=== PATIENT | female | born 1940 | race Two or more races ===

== ENCOUNTER → 2018-01-08 | Outpatient (CLI) | payer OTHER | END | disposition home or self-care (01) | LOC: Rad HDHVI 09:03 | PROVIDERS: ATTEND Internal Medicine Cardiovascular Disease | DX: I10 Essential (primary) hypertension (principal); I35.0 Nonrheumatic aortic (valve) stenosis; E03.9 Hypothyroidism, unspecified; E11.9 Type 2 diabetes mellitus without complications | CPT/HCPCS: 93880 ==

== ENCOUNTER → 2018-01-15 | Outpatient (CLI) | payer OTHER ==
[2018-01-15 16:13] LABS: Urine Blood Negative /uL (Negative); Urine Specific Gravity 1.009 (1.001-1.035)
[2018-01-15 16:29] LABS: Albumin 4.1 g/dL (3.4-5.0); BUN/Creatinine Ratio 21.3; Bilirubin, Total 0.5 mg/dL (0.2-1.0); Calcium 9.5 mg/dL (8.5-10.1); Potassium 3.1 mmol/L (3.5-5.1); Total Protein 8.2 g/dL (6.4-8.2)
[2018-01-15 16:34] LABS: Free T4 (Free Thyroxine) 0.99 ng/dL (0.89-1.76)
[2018-01-15 17:08] LABS: Basophils # (auto) 0 uL; Basophils % (auto) 0.7 % (0.0-2.0); Eosinophils # (auto) 0.1 uL; Eosinophils % (auto) 1.3 % (0.0-7.0); Hematocrit 43.7 % (36.0-46.0); Hemoglobin 14.5 g/dL (12.2-16.2); Lymphocytes # (auto) 1.6 uL; Lymphocytes % (auto) 30.2 % (10.0-50.0); Mean Corpuscular Hemoglobin 29.3 pg (28.0-32.0); Mean Corpuscular Hgb Conc. 33.1 g/dL (32.0-36.0); Mean Corpuscular Volume 88.6 fL (80.0-100.0); Monocytes # (auto) 0.4 uL; Monocytes % (auto) 7.5 % (0.0-12.0); Neutrophils # (auto) 3.2 uL; Neutrophils % (auto) 60.3 % (37.0-80.0); Nucleated Red Blood Cells % 0.6 %; Platelet Count (auto) 154 10^3/uL (140-450); Red Blood Cells 4.93 10^6/uL (4.0-5.20); Red Cell Distribution Width 12.9 % (11.8-14.3); White Blood Cell 5.3 10^3/uL (4.4-10.8)
== END | disposition home or self-care (01) ==
LOC: Rad HDHVI 10:56
PROVIDERS: ATTEND Internal Medicine Cardiovascular Disease
DX: Z00.01 Encounter for general adult medical examination with abnormal findings (principal); I08.8 Other rheumatic multiple valve diseases; I10 Essential (primary) hypertension; E78.00 Pure hypercholesterolemia, unspecified; E11.9 Type 2 diabetes mellitus without complications; E03.9 Hypothyroidism, unspecified; E55.9 Vitamin D deficiency, unspecified; D51.9 Vitamin B12 deficiency anemia, unspecified; N39.0 Urinary tract infection, site not specified
CPT/HCPCS: 36415; 80053; 80061; 81003; 82306; 82607; 83036; 84439; 84443; 85025; 93306

== ENCOUNTER 2018-04-26 14:24 | Inpatient (IN) | payer OTHER ==
[~2018-04-26] VITALS: Ht 165.1 cm; Wt 73.1 kg
[2018-04-26] MEDS ORDERED: cloNIDine HCL 0.1 MG TAB PO ONE (14:45)
[2018-04-26 15:43] LABS: Basophils # (auto) 0 uL; Basophils % (auto) 0.5 % (0.0-2.0); Eosinophils # (auto) 0 uL; Eosinophils % (auto) 0.5 % (0.0-7.0); Hematocrit 43.6 % (36.0-46.0); Lymphocytes # (auto) 1.2 uL; Lymphocytes % (auto) 23.1 % (10.0-50.0); Mean Corpuscular Hemoglobin 30.1 pg (28.0-32.0); Mean Corpuscular Hgb Conc. 34.5 g/dL (32.0-36.0); Mean Corpuscular Volume 87.3 fL (80.0-100.0); Monocytes # (auto) 0.4 uL; Monocytes % (auto) 6.9 % (0.0-12.0); Neutrophils # (auto) 3.7 uL; Nucleated Red Blood Cells % 0.1 %; Platelet Count (auto) 149 10^3/uL (140-450); Red Blood Cells 4.99 10^6/uL (4.0-5.20); Red Cell Distribution Width 13.8 % (11.8-14.3); White Blood Cell 5.4 10^3/uL (4.4-10.8)
[2018-04-26 16:04] LABS: Albumin 4.2 g/dL (3.4-5.0); BUN/Creatinine Ratio 24.1; Bilirubin, Total 0.5 mg/dL (0.2-1.0); Calcium 9.2 mg/dL (8.5-10.1); Potassium 3.8 mmol/L (3.5-5.1); Total Protein 8.3 g/dL (6.4-8.2)
[2018-04-26] MEDS ORDERED: DOXA2TAB PO (16:04)
[2018-04-26] MEDS ORDERED: OLME40TA19 PO (16:04)
[2018-04-26] MEDS ORDERED: MORPHINE SULF INJ 2 MG/ML SYRINGE 1ML IV PRN (19:15)
[2018-04-26 21:10] VITALS: BP 165/75
[2018-04-26] MEDS: DOXAZOSIN MESYL 2 MG TAB PO SCH (21:24)
[2018-04-26] MEDS ORDERED: DOXAZOSIN MESYL 2 MG TAB PO ONE ×2 (22:00→23:15)
[2018-04-26 22:17] VITALS: BP 165/75
[2018-04-27] MEDS: NITROGLYCERIN 0.4 MG SL TAB SL PRN ×2 (01:02→03:37)
[2018-04-27 05:00] VITALS: BP 152/75
[2018-04-27 08:27] VITALS: BP 188/76
[2018-04-27] MEDS: DOXAZOSIN MESYL 2 MG TAB PO SCH ×2 (09:51→22:00)
[2018-04-27] MEDS ORDERED: LOSARTAN POTASSIUM 50 MG TAB PO SCH (10:00)
[2018-04-27 12:30] VITALS: BP 207/89
[2018-04-27] MEDS: ISOSORBIDE MONONITRATE 60 MG TAB PO SCH (12:59)
[2018-04-27 16:15] VITALS: BP 130/79
[2018-04-27 22:00] VITALS: BP 155/64
[2018-04-28 05:00] VITALS: BP 166/73
[2018-04-28 08:40] VITALS: BP 152/87
[2018-04-28] MEDS: ISOSORBIDE MONONITRATE 60 MG TAB PO SCH (10:00)
[2018-04-28] MEDS: TRIAMTERENE/HCTZ 75/50MG TABLET PO SCH (10:16)
[2018-04-28] MEDS: DOXAZOSIN MESYL 2 MG TAB PO SCH (10:17)
[2018-04-28 13:00] VITALS: BP 137/75
[2018-04-28 17:00] VITALS: BP 161/89
[2018-04-28 22:00] VITALS: BP 125/83
[2018-04-29 05:00] VITALS: BP 162/91
[2018-04-29 08:30] VITALS: BP 161/94
[2018-04-29] MEDS: DOXAZOSIN MESYL 2 MG TAB PO SCH ×3 (10:15→21:39)
[2018-04-29] MEDS: TRIAMTERENE/HCTZ 75/50MG TABLET PO SCH (10:16)
[2018-04-29] MEDS: ISOSORBIDE MONONITRATE 60 MG TAB PO SCH (10:16)
[2018-04-29 12:30] VITALS: BP 95/62
[2018-04-29 17:18] VITALS: BP 98/59
[2018-04-29 21:40] VITALS: BP 123/78
[2018-04-30 04:56] VITALS: BP 150/77
[2018-04-30] MEDS: DOXAZOSIN MESYL 2 MG TAB PO SCH (08:41)
[2018-04-30] MEDS: TRIAMTERENE/HCTZ 75/50MG TABLET PO SCH (08:41)
[2018-04-30 09:00] VITALS: BP 156/70
[2018-04-30] MEDS: ISOSORBIDE MONONITRATE 60 MG TAB PO SCH (11:47)
[2018-04-30 13:00] VITALS: BP 174/75
[2018-04-30 13:49] VITALS: BP 135/67
[2018-04-30 15:36] VITALS: BP 135/67
== END 2018-04-30 17:08 | disposition home or self-care (01) | DRG 305 ==
LOC: ER 14:24 → TELE 14:25 → TELE-EAST 21:05
PROVIDERS: ADMIT Internal Medicine Cardiovascular Disease; ATTEND Internal Medicine Cardiovascular Disease
DX: I10 Essential (primary) hypertension (principal); R00.1 Bradycardia, unspecified; I25.10 Atherosclerotic heart disease of native coronary artery without angina pectoris; E78.5 Hyperlipidemia, unspecified; I27.21 Secondary pulmonary arterial hypertension; Z95.5 Presence of coronary angioplasty implant and graft; Z88.5 Allergy status to narcotic agent; Z88.2 Allergy status to sulfonamides
CPT/HCPCS: 36415; 70450; 71045; 80053; 84443; 84484; 85025; 93005

== ENCOUNTER → 2018-05-27 | Outpatient (CLI) | payer BC ==
[~2018-05-27] MED LIST: DOXA2TAB PO; IOHEXOL 350 MG/ML 100ML IJ ONE; OLME40TA19 PO; SODIUM CHLORIDE 0.9% 250 ML IV ONE
[2018-05-27 12:55] VITALS: BP 215/104
[2018-05-27 14:45] VITALS: BP 218/96
== END | disposition home or self-care (01) ==
LOC: Rad HDHVI 12:45
PROVIDERS: ATTEND Internal Medicine Cardiovascular Disease
DX: K57.30 Diverticulosis of large intestine without perforation or abscess without bleeding (principal); I10 Essential (primary) hypertension
CPT/HCPCS: 74175; 82565; G0463; Q9967

== ENCOUNTER → 2018-10-28 | Outpatient (CLI) | payer MEDICARE, OTHER ==
[~2018-10-28] MED LIST changes: -IOHEXOL 350 MG/ML 100ML IJ ONE; -SODIUM CHLORIDE 0.9% 250 ML IV ONE
[2018-10-28 12:26] LABS: Urine WBC None Seen /hpf (0 - 5)
[2018-10-28 12:53] LABS: Basophils # (auto) 0 uL; Basophils % (auto) 0.7 % (0.0-2.0); Eosinophils # (auto) 0 uL; Eosinophils % (auto) 0.7 % (0.0-7.0); Hematocrit 42.1 % (36.0-46.0); Hemoglobin 14.3 g/dL (12.2-16.2); Lymphocytes # (auto) 1.5 uL; Lymphocytes % (auto) 28.3 % (10.0-50.0); Mean Corpuscular Hemoglobin 29.8 pg (28.0-32.0); Mean Corpuscular Volume 87.8 fL (80.0-100.0); Monocytes # (auto) 0.4 uL; Monocytes % (auto) 8.3 % (0.0-12.0); Neutrophils # (auto) 3.3 uL; Nucleated Red Blood Cells % 0.2 %; Platelet Count (auto) 164 10^3/uL (140-450); Red Cell Distribution Width 13.2 % (11.8-14.3); White Blood Cell 5.3 10^3/uL (4.4-10.8)
[2018-10-28 13:07] LABS: Urine Bacteria NONE SEEN /hpf (None Seen); Urine Blood Negative /uL (Negative); Urine Specific Gravity 1.006 (1.001-1.035)
[2018-10-28 13:16] LABS: Potassium 3.1 mmol/L (3.5-5.1)
[2018-10-28 13:28] LABS: Albumin 4.1 g/dL (3.4-5.0); Bilirubin, Total 0.5 mg/dL (0.2-1.0); Calcium 9.8 mg/dL (8.5-10.1); Total Protein 8.3 g/dL (6.4-8.2)
== END | disposition home or self-care (01) ==
LOC: LAB 11:14
PROVIDERS: ATTEND Family Medicine
DX: E78.5 Hyperlipidemia, unspecified (principal); I70.1 Atherosclerosis of renal artery; E11.9 Type 2 diabetes mellitus without complications; I10 Essential (primary) hypertension; Z79.899 Other long term (current) drug therapy
CPT/HCPCS: 36415; 80053; 80061; 81001; 82306; 82607; 83036; 84443; 85025

== ENCOUNTER → 2018-11-28 | Outpatient (CLI) | payer MEDICARE, OTHER ==
[2018-11-28 19:18] LABS: BUN/Creatinine Ratio 23.6; Calcium 8.9 mg/dL (8.5-10.1)
[2018-11-28 20:09] LABS: Potassium 3.7 mmol/L (3.5-5.1)
== END | disposition home or self-care (01) ==
LOC: LAB 16:14
PROVIDERS: ATTEND Family Medicine
DX: E89.6 Postprocedural adrenocortical (-medullary) hypofunction (principal)
CPT/HCPCS: 36415; 80048

== ENCOUNTER → 2019-01-03 | Outpatient (CLI) | payer OTHER | END | disposition home or self-care (01) | LOC: Rad HDHVI 13:55 | PROVIDERS: ATTEND Internal Medicine Cardiovascular Disease | DX: I08.8 Other rheumatic multiple valve diseases (principal); I11.9 Hypertensive heart disease without heart failure; I27.20 Pulmonary hypertension, unspecified; R06.02 Shortness of breath; R07.89 Other chest pain | CPT/HCPCS: 93306 ==

== ENCOUNTER → 2019-06-06 | Outpatient (CLI) | payer OTHER, MEDICARE ==
[2019-06-06 10:07] LABS: Basophils # (auto) 0 uL; Basophils % (auto) 0.5 % (0.0-2.0); Eosinophils # (auto) 0.1 uL; Eosinophils % (auto) 1.7 % (0.0-7.0); Hematocrit 41.4 % (36.0-46.0); Hemoglobin 13.9 g/dL (12.2-16.2); Lymphocytes # (auto) 1.4 uL; Lymphocytes % (auto) 28.8 % (10.0-50.0); Mean Corpuscular Hemoglobin 29.7 pg (28.0-32.0); Mean Corpuscular Hgb Conc. 33.6 g/dL (32.0-36.0); Mean Corpuscular Volume 88.4 fL (80.0-100.0); Monocytes # (auto) 0.4 uL; Monocytes % (auto) 8.7 % (0.0-12.0); Neutrophils # (auto) 2.9 uL; Neutrophils % (auto) 60.3 % (37.0-80.0); Platelet Count (auto) 143 10^3/uL (140-450); Red Blood Cells 4.69 10^6/uL (4.0-5.20); Red Cell Distribution Width 13.5 % (11.8-14.3); White Blood Cell 4.9 10^3/uL (4.4-10.8)
[2019-06-06 10:13] LABS: Urine Bacteria NONE SEEN /hpf (None Seen); Urine Blood Negative /uL (Negative); Urine WBC 1 /hpf (0 - 5)
[2019-06-06 11:02] LABS: Albumin 3.9 g/dL (3.4-5.0); Potassium 3.1 mmol/L (3.5-5.1)
[2019-06-06 11:08] LABS: BUN/Creatinine Ratio 24.4; Bilirubin, Total 0.5 mg/dL (0.2-1.0); Total Protein 7.7 g/dL (6.4-8.2)
== END | disposition home or self-care (01) ==
LOC: LAB 09:33
PROVIDERS: ATTEND Family Medicine
DX: E11.9 Type 2 diabetes mellitus without complications (principal); I10 Essential (primary) hypertension; E87.6 Hypokalemia; I34.0 Nonrheumatic mitral (valve) insufficiency; I25.10 Atherosclerotic heart disease of native coronary artery without angina pectoris; Z68.27 Body mass index [BMI] 27.0-27.9, adult
CPT/HCPCS: 36415; 80053; 80061; 81001; 83036; 84443; 85025

== ENCOUNTER → 2019-08-21 | Outpatient (CLI) | payer MEDICARE, OTHER ==
[~2019-08-21] MED LIST changes: -OLME40TA19 PO; +OLME40TA26 PO
[2019-08-21 13:34] LABS: Albumin 3.8 g/dL (3.4-5.0); Calcium 9.5 mg/dL (8.5-10.1); Potassium 3.3 mmol/L (3.5-5.1)
[2019-08-21 13:40] LABS: Bilirubin, Total 0.6 mg/dL (0.2-1.0); Total Protein 7.8 g/dL (6.4-8.2)
== END | disposition home or self-care (01) ==
LOC: LAB 12:45
PROVIDERS: ATTEND Family Medicine
DX: E78.00 Pure hypercholesterolemia, unspecified (principal); E87.6 Hypokalemia; R73.03 Prediabetes
CPT/HCPCS: 36415; 80053; 80061

== ENCOUNTER → 2019-09-11 | Outpatient (CLI) | payer OTHER | END | disposition home or self-care (01) | LOC: Rad HDHVI 08:50 | PROVIDERS: ATTEND Internal Medicine Cardiovascular Disease | DX: I08.8 Other rheumatic multiple valve diseases (principal); I10 Essential (primary) hypertension; Z95.5 Presence of coronary angioplasty implant and graft | CPT/HCPCS: 93306 ==

== ENCOUNTER 2019-10-01 12:11 | Inpatient (IN) | payer OTHER ==
[~2019-10-01] VITALS: Ht 157.5 cm; Wt 70.3 kg
[~2019-10-01 12:11] MED LIST changes: -AML5T PO; -ATOR10TA PO; -METH4PAK PO; -OLME40TA9 PO; -PANT40TA2 PO; -PRED20TA2 PO
[2019-10-01 15:18] LABS: Basophils # (auto) 0 uL; Basophils % (auto) 0.7 % (0.0-2.0); Eosinophils # (auto) 0 uL; Eosinophils % (auto) 0.6 % (0.0-7.0); Hematocrit 41.6 % (36.0-46.0); Hemoglobin 13.9 g/dL (12.2-16.2); Lymphocytes # (auto) 1.5 uL; Mean Corpuscular Hemoglobin 29.8 pg (28.0-32.0); Mean Corpuscular Hgb Conc. 33.5 g/dL (32.0-36.0); Mean Corpuscular Volume 88.9 fL (80.0-100.0); Monocytes # (auto) 0.4 uL; Monocytes % (auto) 7.5 % (0.0-12.0); Neutrophils # (auto) 3.5 uL; Neutrophils % (auto) 63.2 % (37.0-80.0); Nucleated Red Blood Cells % 0.1 %; Platelet Count (auto) 151 10^3/uL (140-450); Red Blood Cells 4.68 10^6/uL (4.0-5.20); Red Cell Distribution Width 13.6 % (11.8-14.3); White Blood Cell 5.5 10^3/uL (4.4-10.8)
[2019-10-01 15:36] LABS: Albumin 4.2 g/dL (3.4-5.0); Anion Gap 6 (5-15); Blood Urea Nitrogen 22 mg/dL (7-18); Calcium 9.4 mg/dL (8.5-10.1); Carbon Dioxide 28 mmol/L (21-32); Chloride 103 mmol/L (98-107); Glucose 133 mg/dL (74-106); Potassium 3.6 mmol/L (3.5-5.1); Sodium 137 mmol/L (136-145)
[2019-10-01 15:41] LABS: Alanine Aminotransferase 66 U/L (13-56); Alkaline Phosphatase 92 U/L (45-117); Aspartate Aminotransferase 28 U/L (15-37); BUN/Creatinine Ratio 25.3; Bilirubin, Total 0.4 mg/dL (0.2-1.0); GFR African American 81 mL/min; GFR Non-African American 67 mL/min
[2019-10-01 18:59] LABS: Urine Bacteria NONE SEEN /hpf (None Seen); Urine Blood Negative /uL (Negative); Urine Specific Gravity 1.012 (1.001-1.035); Urine WBC 11 /hpf (0 - 5)
[2019-10-01] MEDS ORDERED: LABETALOL HCL 5 MG/ML 4ML SYRINGE IV PRN (20:00)
[2019-10-01] MEDS ORDERED: MORPHINE SULF INJ 2 MG/ML SYRINGE 1ML IV PRN ×2 (20:00→21:00)
[2019-10-01] MEDS ORDERED: LORazepam 0.5 MG TAB PO PRN (20:00)
[2019-10-01] MEDS ORDERED: NITROGLYCERIN 0.4 MG SL TAB SL PRN (20:00)
[2019-10-01] MEDS ORDERED: FAMOTIDINE (10MG/ML) 2ML VL IV SCH (22:00)
[2019-10-01] MEDS: LISINOPRIL 20 MG TAB PO SCH (22:05)
[2019-10-01 23:20] VITALS: BP 135/76
--- NOTE | 2019-10-01 23:45 | NUR ---
RECEIVED PT FROM ER NURSE POC REVIEWED, PT TRANSFERRED INTO BED 248A, RESP EVEN AND UNLABORED, DENIES PAIN, C/O RIGHT EYE TWITCHING DROOPING AND BLINKING, B/P 157/98 HR 64 LABETALOL IV GIVEN ORDERED
[2019-10-02 02:00] VITALS: BP 157/98
[2019-10-02 05:00] VITALS: BP 152/77
[2019-10-02 06:30] LABS: Basophils # (auto) 0 uL; Basophils % (auto) 0.4 % (0.0-2.0); Eosinophils # (auto) 0 uL; Eosinophils % (auto) 0.9 % (0.0-7.0); Hemoglobin 13.1 g/dL (12.2-16.2); Lymphocytes # (auto) 1.6 uL; Lymphocytes % (auto) 30.4 % (10.0-50.0); Mean Corpuscular Hemoglobin 30.4 pg (28.0-32.0); Mean Corpuscular Hgb Conc. 34.4 g/dL (32.0-36.0); Mean Corpuscular Volume 88.3 fL (80.0-100.0); Monocytes # (auto) 0.5 uL; Monocytes % (auto) 9.6 % (0.0-12.0); Neutrophils # (auto) 3.1 uL; Neutrophils % (auto) 58.7 % (37.0-80.0); Platelet Count (auto) 145 10^3/uL (140-450); Red Blood Cells 4.31 10^6/uL (4.0-5.20); Red Cell Distribution Width 13.4 % (11.8-14.3); White Blood Cell 5.3 10^3/uL (4.4-10.8)
--- NOTE | 2019-10-02 07:00 | NUR ---
report given to am nurse poc reviewed
--- NOTE | 2019-10-02 07:25 | NUR ---
Opening Note Received report from shift superintendent caustic cresylate RN. Patient is awake, alert and oriented x4. No signs or symptoms of distress noted at this time. Patient is on room air, respirations even and unlabored, denies pain at this time. Reviewed plan of care with patient, patient verbalized understanding. Bed in low and locked position, call light within reach. Will continue to monitor Q1 hour and PRN.
[2019-10-02 07:45] LABS: BUN/Creatinine Ratio 20.2; Calcium 9.3 mg/dL (8.5-10.1); Potassium 3.1 mmol/L (3.5-5.1)
[2019-10-02 09:26] VITALS: BP 163/79
[2019-10-02] MEDS: LISINOPRIL 20 MG TAB PO SCH ×2 (09:58→22:11)
--- NOTE | 2019-10-02 12:20 | NUR ---
Patient taken down to MRI
--- NOTE | 2019-10-02 12:49 | NUR ---
Patient back to room Patient back from MRI. No signs or symptoms of distress noted at this time. Will continue to monitor Q1 hour and PRN.
[2019-10-02 13:21] VITALS: BP 161/90
--- NOTE | 2019-10-02 14:40 | NUR ---
Dr. Peterson at bedside Discussing plan of care with patient and this RN. No new orders received. Family at bedside. Will continue to monitor Q1 hour and PRN.
[2019-10-02] MEDS ORDERED: POTASSIUM CHL 20 Meq TABLET PO ONE (15:00)
[2019-10-02] MEDS ORDERED: amLODIPine BESYLATE 5 MG TAB PO ONE (15:00)
[2019-10-02] MEDS ORDERED: LORazepam 0.5 MG TAB PO PRN (15:00)
[2019-10-02] MEDS ORDERED: hydrALAZINE HCL 20 MG/ML VL IV PRN (15:00)
[2019-10-02] MEDS ORDERED: TEMAZEPAM 15 MG CAP PO PRN (15:00)
[2019-10-02 16:55] VITALS: BP 163/84
[2019-10-02] MEDS ORDERED: DOXAZOSIN MESYL 2 MG TAB PO SCH (18:00)
--- NOTE | 2019-10-02 19:15 | NUR ---
Closing Note Report given to coffee shop attendant RN. No signs or symptoms of distress noted at this time.
--- NOTE | 2019-10-02 19:20 | NUR ---
OPENING NOTE- NOC SHIFT PATIENT IS ALERT AND ORIENTED X4, ANSWERS IN COMPLETE SENTENCES AND MAKES APPROPRIATE EYE CONTACT. PATIENT IS IN BED, DAUGHTER IS AT BEDSIDE. DISCUSSED POC WITH PATIENT AND DAUGHTER AND INSTRUCTED PATIENT TO CALL PRN; PATIENT VERBALIZED UNDERSTANDING. WILL CONTINUE TO MONITOR Q1H AND PRN. GOOD FAMILY DYNAMICS NOTED.
[2019-10-02] MEDS ORDERED: FAMOTIDINE (10MG/ML) 2ML VL IV SCH (22:00)
[2019-10-02] MEDS: predniSONE 20 MG TAB PO SCH (22:10)
[2019-10-02 22:41] VITALS: BP 170/98
[2019-10-03 05:36] VITALS: BP 150/90
[2019-10-03 07:10] LABS: Magnesium 2.1 mg/dL (1.6-2.6); Potassium 4.2 mmol/L (3.5-5.1)
[2019-10-03 09:00] VITALS: BP 158/93
--- NOTE | 2019-10-03 09:41 | NUR ---
PT REPORTS THAT SHE WALKS FINE AND DOES NOT NEED P.T.
[2019-10-03] MEDS: predniSONE 20 MG TAB PO SCH (09:49)
[2019-10-03] MEDS: LISINOPRIL 20 MG TAB PO SCH (09:49)
[2019-10-03] MEDS ORDERED: amLODIPine BESYLATE 5 MG TAB PO SCH (10:00)
[2019-10-03] MEDS ORDERED: OLME40TA26 PO (11:28)
[2019-10-03] MEDS ORDERED: AML5T PO (11:28)
[2019-10-03] MEDS ORDERED: PANT40TA2 PO (11:28)
[2019-10-03] MEDS ORDERED: OLME40TA9 PO (11:28)
[2019-10-03] MEDS ORDERED: PRED20TA2 PO (11:28)
[2019-10-03] MEDS ORDERED: METH4PAK PO (11:28)
[2019-10-03] MEDS ORDERED: amLODIPine BESYLATE 5 MG TAB PO ONE (11:30)
[2019-10-03] MEDS ORDERED: ATOR10TA PO (11:31)
[2019-10-03] MEDS ORDERED: ISOSORBIDE MONONITRATE IR 20 MG TAB PO ONE (12:00)
[2019-10-03 13:00] VITALS: BP 184/87
[2019-10-03 14:15] VITALS: BP 144/78
--- NOTE | 2019-10-03 14:15 | NUR ---
Discharge instructions given as ordered. Encourage to follow up with PMD as instructed. All questions and concerns addressed. Patient verbalized understanding.IV removed with catheter intact, pressure dressing applied. Telemetry unit returned to ICU. Patient taken to vehicle via wheelchair with all personal belongings, accompanied by staff and family member. No distress noted at time of departure.
== END 2019-10-03 14:18 | disposition home or self-care (01) | DRG 305 ==
LOC: ER 12:11 → TELE 12:12 → TELE-EAST 23:15
PROVIDERS: ADMIT Nurse Practitioner Acute Care; ATTEND Internal Medicine
DX: I16.0 Hypertensive urgency (principal); I25.10 Atherosclerotic heart disease of native coronary artery without angina pectoris; E78.5 Hyperlipidemia, unspecified; I12.9 Hypertensive chronic kidney disease with stage 1 through stage 4 chronic kidney disease, or unspecified chronic kidney disease; G51.0 Bell's palsy; E11.22 Type 2 diabetes mellitus with diabetic chronic kidney disease; F17.200 Nicotine dependence, unspecified, uncomplicated; N18.3 Chronic kidney disease, stage 3 (moderate); Z95.5 Presence of coronary angioplasty implant and graft; Z90.710 Acquired absence of both cervix and uterus; Z82.49 Family history of ischemic heart disease and other diseases of the circulatory system; Z80.0 Family history of malignant neoplasm of digestive organs; Z80.1 Family history of malignant neoplasm of trachea, bronchus and lung; Z88.5 Allergy status to narcotic agent; Z88.2 Allergy status to sulfonamides; Z79.899 Other long term (current) drug therapy
CPT/HCPCS: 36415; 70450; 70551; 80048; 80053; 80061; 81001; 83735; 84132; 84443; 84484; 85025; 87086; G0378; J3490

== ENCOUNTER → 2019-10-01 | Outpatient (CLI) | payer OTHER ==
[~2019-10-01] MED LIST changes: +AML5T PO; +ATOR10TA PO; +METH4PAK PO; +OLME40TA9 PO; +PANT40TA2 PO; +PRED20TA2 PO
[2019-10-01 11:04] LABS: BUN/Creatinine Ratio 27.7; Calcium 9.2 mg/dL (8.5-10.1); Potassium 3.5 mmol/L (3.5-5.1)
== END | disposition home or self-care (01) ==
LOC: LAB 10:18
PROVIDERS: ATTEND Family Medicine
DX: E87.6 Hypokalemia (principal); I10 Essential (primary) hypertension
CPT/HCPCS: 36415; 80048

== ENCOUNTER 2020-05-23 11:11 | Emergency (ER) | payer MEDICARE, OTHER ==
[~2020-05-23] VITALS: Ht 162.6 cm; Wt 70.3 kg
[~2020-05-23 11:11] MED LIST changes: +AML5T PO; +ATOR10TA PO; +METH4PAK PO; +OLME40TA9 PO; +PANT40TA2 PO; +PRED20TA2 PO
[2020-05-23 12:09] LABS: Basophils # (auto) 0 10 ^3/uL (0-0.2); Basophils % (auto) 0.3 % (0.0-2.0); Eosinophils # (auto) 0 10 ^3/uL (0-0.8); Eosinophils % (auto) 0.2 % (0.0-7.0); Hematocrit 45.2 % (36.0-46.0); Lymphocytes % (auto) 13.6 % (10.0-50.0); Mean Corpuscular Hemoglobin 29.4 pg (28.0-32.0); Mean Corpuscular Hgb Conc. 33.1 g/dL (32.0-36.0); Mean Corpuscular Volume 88.8 fL (80.0-100.0); Monocytes # (auto) 0.5 10 ^3/uL (0-1.3); Monocytes % (auto) 6.6 % (0.0-12.0); Neutrophils # (auto) 5.8 10 ^3/uL (1.6-8.6); Neutrophils % (auto) 79.3 % (37.0-80.0); Nucleated Red Blood Cells % 0.1 %; Platelet Count (auto) 108 10^3/uL (140-450); Red Cell Distribution Width 14.5 % (11.8-14.3); White Blood Cell 7.3 10^3/uL (4.4-10.8)
[2020-05-23 12:25] LABS: Albumin 4.2 g/dL (3.4-5.0); Anion Gap 7 (5-15); Calcium 9.7 mg/dL (8.5-10.1); Carbon Dioxide 27 mmol/L (21-32); Chloride 104 mmol/L (98-107); Glucose 119 mg/dL (74-106); Potassium 3.2 mmol/L (3.5-5.1); Sodium 138 mmol/L (136-145)
[2020-05-23 12:41] LABS: Alanine Aminotransferase 25 U/L (13-56); Alkaline Phosphatase 100 U/L (45-117); Aspartate Aminotransferase 19 U/L (15-37); Bilirubin, Total 0.5 mg/dL (0.2-1.0); GFR African American 74 mL/min; GFR Non-African American 61 mL/min; Total Protein 8.3 g/dL (6.4-8.2)
[2020-05-23 13:06] LABS: BUN/Creatinine Ratio 19.4; Blood Urea Nitrogen 18 mg/dL (7-18)
[2020-05-23 15:43] LABS: Urine Bacteria FEW /hpf (None Seen); Urine Blood Negative /uL (Negative); Urine Specific Gravity 1.012 (1.001-1.035); Urine WBC <1 /hpf (0 - 5)
[2020-05-23] MEDS ORDERED: SODIUM CHLORIDE 0.9% 1,000 ML IV ONE (15:45)
[2020-05-23] MEDS ORDERED: LABETALOL HCL 5 MG/ML 4ML SYRINGE IV ONE (15:45)
[2020-05-23] MEDS ORDERED: POTASSIUM EFFERVESENT TAB 25 MEQ PO ONE (17:30)
[2020-05-23 18:30] VITALS: BP 165/77
== END 2020-05-23 17:41 | disposition home or self-care (01) ==
LOC: ER 11:11
DX: I10 Essential (primary) hypertension (principal); E87.6 Hypokalemia; I49.3 Ventricular premature depolarization
CPT/HCPCS: 36415; 71046; 80053; 81001; 83735; 84443; 84484; 85025; 93005; 96361; 96374; 99285; J3490; J7030

== ENCOUNTER → 2020-06-07 | Outpatient (CLI) | payer OTHER ==
[2020-06-07 12:18] LABS: Albumin 3.8 g/dL (3.4-5.0); Potassium 4.1 mmol/L (3.5-5.1)
[2020-06-07 12:24] LABS: BUN/Creatinine Ratio 19.3; Bilirubin, Total 0.6 mg/dL (0.2-1.0); Calcium 9.5 mg/dL (8.5-10.1); Total Protein 7.5 g/dL (6.4-8.2)
== END | disposition home or self-care (01) ==
LOC: LAB 09:37
PROVIDERS: ATTEND Internal Medicine Cardiovascular Disease
DX: I10 Essential (primary) hypertension (principal)
CPT/HCPCS: 36415; 80053

== ENCOUNTER → 2020-12-28 | Outpatient (CLI) | payer OTHER, MEDICARE | END | disposition home or self-care (01) | LOC: Rad HDHVI 14:52 | PROVIDERS: ATTEND Internal Medicine Cardiovascular Disease | DX: R06.02 Shortness of breath (principal); R00.2 Palpitations | CPT/HCPCS: 93306 ==

== ENCOUNTER → 2021-01-12 | Outpatient (CLI) | payer OTHER, MEDICARE ==
[~2021-01-12] VITALS: Ht 165.1 cm; Wt 68.9 kg
[~2021-01-12] MED LIST changes: +cloNIDine HCL 0.1 MG TAB ONE
== END | disposition home or self-care (01) ==
LOC: Rad HDHVI 13:27
PROVIDERS: ATTEND Internal Medicine Cardiovascular Disease
DX: I11.9 Hypertensive heart disease without heart failure (principal); I25.10 Atherosclerotic heart disease of native coronary artery without angina pectoris; E78.5 Hyperlipidemia, unspecified; R06.02 Shortness of breath
CPT/HCPCS: 78452; 93017; 96374; A9500

== ENCOUNTER → 2021-02-15 | Outpatient (CLI) | payer OTHER ==
[~2021-02-15] MED LIST changes: -cloNIDine HCL 0.1 MG TAB ONE
[2021-02-15 10:51] LABS: Basophils # (auto) 0 10 ^3/uL (0-0.2); Basophils % (auto) 0.7 % (0.0-2.0); Eosinophils # (auto) 0.1 10 ^3/uL (0-0.8); Eosinophils % (auto) 1.2 % (0.0-7.0); Hematocrit 41.2 % (36.0-46.0); Hemoglobin 14.2 g/dL (12.2-16.2); Lymphocytes # (auto) 1.3 10 ^3/uL (0.4-5.4); Lymphocytes % (auto) 26.2 % (10.0-50.0); Mean Corpuscular Hemoglobin 30.2 pg (28.0-32.0); Mean Corpuscular Hgb Conc. 34.6 g/dL (32.0-36.0); Mean Corpuscular Volume 87.2 fL (80.0-100.0); Monocytes # (auto) 0.4 10 ^3/uL (0-1.3); Monocytes % (auto) 8.6 % (0.0-12.0); Neutrophils % (auto) 63.3 % (37.0-80.0); Nucleated Red Blood Cells % 0.1 %; Platelet Count (auto) 143 10^3/uL (140-450); Red Blood Cells 4.72 10^6/uL (4.0-5.20); White Blood Cell 4.8 10^3/uL (4.4-10.8)
[2021-02-15 11:21] LABS: Albumin 3.7 g/dL (3.4-5.0); Calcium 8.8 mg/dL (8.5-10.1); Potassium 3.4 mmol/L (3.5-5.1)
[2021-02-15 11:25] LABS: BUN/Creatinine Ratio 16.4; Bilirubin, Total 0.5 mg/dL (0.2-1.0); Total Protein 7.5 g/dL (6.4-8.2)
== END | disposition home or self-care (01) ==
LOC: LAB 10:24
PROVIDERS: ATTEND Family Medicine
DX: I25.10 Atherosclerotic heart disease of native coronary artery without angina pectoris (principal); I12.9 Hypertensive chronic kidney disease with stage 1 through stage 4 chronic kidney disease, or unspecified chronic kidney disease; N18.30 Chronic kidney disease, stage 3 unspecified; E87.6 Hypokalemia; E78.5 Hyperlipidemia, unspecified
CPT/HCPCS: 36415; 80053; 80061; 82306; 82607; 84443; 85025; 85049

== ENCOUNTER → 2021-09-02 | Outpatient (CLI) | payer OTHER ==
[~2021-09-02] VITALS: Ht 162.6 cm; Wt 68.9 kg
[~2021-09-02] MED LIST changes: +ACETAMINOPHEN 500 MG TAB PO ONE; +[UNRECOGNIZED DRUG - OTHER] IV ONE
[2021-09-02 12:11] VITALS: BP 184/92
[2021-09-02 13:30] VITALS: BP 178/85
[2021-09-02 13:45] VITALS: BP 178/90
[2021-09-02 14:15] VITALS: BP 170/88
[2021-09-02 14:45] VITALS: BP 175/78
[2021-09-02 14:50] VITALS: BP 175/78
== END | disposition home or self-care (01) ==
LOC: ER 12:52
PROVIDERS: ATTEND Internal Medicine
DX: U07.1 COVID-19 (principal)
CPT/HCPCS: M0247; Q0247

== ENCOUNTER → 2021-11-08 | Outpatient (CLI) | payer OTHER ==
[~2021-11-08] MED LIST changes: -ACETAMINOPHEN 500 MG TAB PO ONE; -[UNRECOGNIZED DRUG - OTHER] IV ONE
[2021-11-08 09:09] LABS: Basophils # (auto) 0 10 ^3/uL (0-0.2); Basophils % (auto) 0.6 % (0.0-2.0); Eosinophils # (auto) 0.1 10 ^3/uL (0-0.8); Eosinophils % (auto) 1.3 % (0.0-7.0); Hematocrit 42.3 % (36.0-46.0); Hemoglobin 14.2 g/dL (12.2-16.2); Lymphocytes # (auto) 1.8 10 ^3/uL (0.4-5.4); Lymphocytes % (auto) 31.8 % (10.0-50.0); Mean Corpuscular Hemoglobin 30.1 pg (28.0-32.0); Mean Corpuscular Hgb Conc. 33.6 g/dL (32.0-36.0); Mean Corpuscular Volume 89.7 fL (80.0-100.0); Monocytes # (auto) 0.5 10 ^3/uL (0-1.3); Monocytes % (auto) 8.2 % (0.0-12.0); Neutrophils # (auto) 3.3 10 ^3/uL (1.6-8.6); Neutrophils % (auto) 58.1 % (37.0-80.0); Red Blood Cells 4.72 10^6/uL (4.0-5.20); Red Cell Distribution Width 13.8 % (11.8-14.3); White Blood Cell 5.6 10^3/uL (4.4-10.8)
[2021-11-08 09:47] LABS: Potassium 3.5 mmol/L (3.5-5.1)
[2021-11-08 09:59] LABS: Albumin 3.7 g/dL (3.4-5.0); BUN/Creatinine Ratio 18.9; Bilirubin, Total 0.6 mg/dL (0.2-1.0); Calcium 9.2 mg/dL (8.5-10.1); Total Protein 8.1 g/dL (6.4-8.2)
== END | disposition home or self-care (01) ==
LOC: LAB 08:33
PROVIDERS: ATTEND Student in an Organized Health Care Education/Training Program
DX: I42.0 Dilated cardiomyopathy (principal); I10 Essential (primary) hypertension; E78.2 Mixed hyperlipidemia; E55.9 Vitamin D deficiency, unspecified
CPT/HCPCS: 36415; 80053; 80061; 82306; 85025

== ENCOUNTER → 2021-11-14 | Outpatient (CLI) | payer OTHER ==
[2021-11-14 11:49] LABS: Basophils # (auto) 0.2 10 ^3/uL (0-0.2); Basophils % (auto) 2.8 % (0.0-2.0); Eosinophils # (auto) 0.1 10 ^3/uL (0-0.8); Eosinophils % (auto) 1.1 % (0.0-7.0); Lymphocytes # (auto) 1.5 10 ^3/uL (0.4-5.4); Lymphocytes % (auto) 25.5 % (10.0-50.0); Mean Corpuscular Hemoglobin 30.5 pg (28.0-32.0); Mean Corpuscular Hgb Conc. 34.1 g/dL (32.0-36.0); Mean Corpuscular Volume 89.4 fL (80.0-100.0); Monocytes # (auto) 0.6 10 ^3/uL (0-1.3); Monocytes % (auto) 9.3 % (0.0-12.0); Neutrophils # (auto) 3.7 10 ^3/uL (1.6-8.6); Neutrophils % (auto) 61.3 % (37.0-80.0); Nucleated Red Blood Cells % 0.1 %; Red Blood Cells 4.59 10^6/uL (4.0-5.20); Red Cell Distribution Width 13.9 % (11.8-14.3)
[2021-11-14 11:53] LABS: Urine Blood Negative /uL (Negative); Urine Specific Gravity 1.015 (1.001-1.035)
[2021-11-14 12:13] LABS: Albumin 3.5 g/dL (3.4-5.0); Calcium 9.2 mg/dL (8.5-10.1); Potassium 3.5 mmol/L (3.5-5.1)
[2021-11-14 12:18] LABS: BUN/Creatinine Ratio 23.1; Bilirubin, Total 0.6 mg/dL (0.2-1.0); Free T4 (Free Thyroxine) 1.16 ng/dL (0.89-1.76); Total Protein 7.7 g/dL (6.4-8.2)
== END | disposition home or self-care (01) ==
LOC: LAB 08:21
PROVIDERS: ATTEND Internal Medicine Cardiovascular Disease
DX: E11.9 Type 2 diabetes mellitus without complications (principal); D51.3 Other dietary vitamin B12 deficiency anemia; D64.9 Anemia, unspecified; E55.9 Vitamin D deficiency, unspecified; I10 Essential (primary) hypertension; R00.2 Palpitations; R53.1 Weakness; R30.0 Dysuria
CPT/HCPCS: 36415; 80053; 80061; 81003; 82306; 82607; 83036; 84439; 84443; 85025

== ENCOUNTER → 2022-08-25 | Outpatient (CLI) | payer OTHER ==
[~2022-08-25] VITALS: Ht 162.6 cm; Wt 69.4 kg
== END | disposition home or self-care (01) ==
LOC: Rad HDHVI 08:39
PROVIDERS: ATTEND Internal Medicine Cardiovascular Disease
DX: I25.10 Atherosclerotic heart disease of native coronary artery without angina pectoris (principal); R07.89 Other chest pain; I10 Essential (primary) hypertension; E78.5 Hyperlipidemia, unspecified
CPT/HCPCS: 78452; 93017; 96374; A9500

== ENCOUNTER → 2022-08-28 | Outpatient (CLI) | payer OTHER | END | disposition home or self-care (01) | LOC: Rad HDHVI 10:04 | PROVIDERS: ATTEND Internal Medicine Cardiovascular Disease | DX: I10 Essential (primary) hypertension (principal); E78.5 Hyperlipidemia, unspecified | CPT/HCPCS: 93306 ==

== ENCOUNTER 2024-06-04 15:54 | Inpatient (IN) | payer OTHER ==
[~2024-06-04] VITALS: Ht 162.6 cm; Wt 69.3 kg
[~2024-06-04 15:54] MED LIST changes: +ACET1CAP14 PO; +AZITTAB PO; -DOXA2TAB PO; +DOXA2TAB84 PO; -OLME40TA26 PO; +OLME40TA78 PO
[2024-06-04 17:23] LABS: Alanine Aminotransferase 20 U/L (7-40); Alkaline Phosphatase 97 U/L (46-116); Anion Gap 8 (5-15); BUN/Creatinine Ratio 18.1 (10.0-20.0); Blood Urea Nitrogen 17 mg/dL (9-23); Calcium 10.2 mg/dL (8.7-10.4); Carbon Dioxide 28 mmol/L (20-31); Chloride 105 mmol/L (98-107); Glucose 135 mg/dL (74-106); Potassium 3.6 mmol/L (3.5-5.1); Sodium 141 mmol/L (136-145)
[2024-06-04 17:24] LABS: Albumin 4.9 g/dL (3.2-4.8); Aspartate Aminotransferase 17 U/L (13-40); Bilirubin, Total 0.5 mg/dL (0.2-1.0); Total Protein 8.1 g/dL (5.7-8.2)
[2024-06-04 18:12] LABS: Hematocrit 47.1 % (36.0-46.0); Hemoglobin 15.7 g/dL (12.2-16.2); Mean Corpuscular Hemoglobin 30.5 pg (28.0-32.0); Mean Corpuscular Hgb Conc. 33.4 g/dL (32.0-36.0); Mean Corpuscular Volume 91.4 fL (80.0-100.0); Red Blood Cells 5.15 10^6/uL (4.0-5.20); Red Cell Distribution Width 13.8 % (11.8-14.3); White Blood Cell 6.7 10^3/uL (4.4-10.8)
[2024-06-04 18:20] LABS: Band Neutrophils % (manual) 0; Basophils % (manual) 0 (0.0-2.0); Blast Cells 0; Eosinophils % (manual) 0 (0-7); Metamyelocytes % 0; Myelocytes % 0; Promyelocytes % 0; Reactive Lymphocytes 0
[2024-06-04 19:36] LABS: Lymphocytes % (manual) 26 (10.0-50.0); Monocytes % (manual) 6 (0-12); Platelet Count (auto) 225 10^3/uL (140-450); Platelet Estimate Adequate; RBC Morphology Normal
[2024-06-04 19:50] VITALS: PULSE 86; RESP 16; O2SAT 97
[2024-06-04] MEDS: NITROGLYCERIN 0.4 MG SL TAB SL ONE (19:54)
[2024-06-04] MEDS ORDERED: NIFE1TAB31 PO (20:28)
[2024-06-04] MEDS ORDERED: ONDANSETRON HCL 4 MG/2 ML VIAL IV PRN (20:30)
[2024-06-04] MEDS ORDERED: NITROGLYCERIN 0.4 MG SL TAB SL PRN (20:30)
[2024-06-04] MEDS ORDERED: HYDROcodone-ACET 5/325MG TAB PO PRN (20:30)
[2024-06-04] MEDS ORDERED: DOCUSATE SOD 100 MG CAP PO PRN (20:30)
[2024-06-04] MEDS ORDERED: MORPHINE SULFATE INJ 2 MG/ml SYRG IV PRN (20:30)
[2024-06-04] MEDS ORDERED: ACETAMINOPHEN 325 MG TAB PO PRN (20:30)
[2024-06-04 21:16] LABS: Urine Bacteria None Seen /hpf (None Seen)
[2024-06-04 21:26] LABS: Urine Blood Negative /uL (Negative); Urine Clarity Clear (Clear); Urine Color Light-Yellow (Yellow); Urine Hyaline Cast FEW /lpf (0 - 2); Urine Mucus FEW (None Seen); Urine Protein, UAD 1+ (Negative); Urine Specific Gravity 1.015 (1.001-1.035); Urine Urobilinogen Normal (Negative); Urine WBC 3 /hpf (0 - 5); Urine pH 6.5 (5.0-9.0)
[2024-06-04] MEDS: cloNIDine HCL 0.1 MG TAB PO ONE (21:55)
[2024-06-04] MEDS: SODIUM CHLOR 0.9% PF (SALINE LOCK) 10ML VIAL/SYR IV SCH (21:55)
[2024-06-04] MEDS: NIFEdipine ER 30 MG TAB PO SCH (21:57)
[2024-06-05] VITALS (9 sets, daily range): BP systolic 122–174; BP diastolic 57–78; PULSE 54–67; RESP 16–19; TEMP 97.6–98.7; O2SAT 95–96
[2024-06-05] MEDS: hydrALAZINE HCL 20 MG/ML VL IV PRN (01:12)
[2024-06-05] MEDS: cloNIDine HCL 0.1 MG TAB PO ONE (04:35)
[2024-06-05 07:15] LABS: Basophils # (auto) 0 10 ^3/uL (0-0.2); Basophils % (auto) 0.5 % (0.0-2.0); Eosinophils # (auto) 0.1 10 ^3/uL (0-0.8); Eosinophils % (auto) 1.1 % (0.0-7.0); Hematocrit 40.2 % (36.0-46.0); Hemoglobin 13.7 g/dL (12.2-16.2); Lymphocytes # (auto) 1.4 10 ^3/uL (0.4-5.4); Lymphocytes % (auto) 27.1 % (10.0-50.0); Mean Corpuscular Hemoglobin 30.8 pg (28.0-32.0); Mean Corpuscular Hgb Conc. 34.1 g/dL (32.0-36.0); Mean Corpuscular Volume 90.2 fL (80.0-100.0); Monocytes # (auto) 0.5 10 ^3/uL (0-1.3); Monocytes % (auto) 9.7 % (0.0-12.0); Neutrophils # (auto) 3.3 10 ^3/uL (1.6-8.6); Neutrophils % (auto) 61.6 % (37.0-80.0); Nucleated Red Blood Cells % 0.1 %; Platelet Count (auto) 141 10^3/uL (140-450); Red Blood Cells 4.46 10^6/uL (4.0-5.20); Red Cell Distribution Width 13.7 % (11.8-14.3); White Blood Cell 5.3 10^3/uL (4.4-10.8)
[2024-06-05 07:37] LABS: Alanine Aminotransferase 14 U/L (7-40); Albumin 3.9 g/dL (3.2-4.8); Alkaline Phosphatase 74 U/L (46-116); Anion Gap 9 (5-15); Aspartate Aminotransferase 15 U/L (13-40); BUN/Creatinine Ratio 15.6 (10.0-20.0); Blood Urea Nitrogen 12 mg/dL (9-23); Calcium 9.7 mg/dL (8.7-10.4); Carbon Dioxide 28 mmol/L (20-31); Chloride 106 mmol/L (98-107); Glucose 122 mg/dL (74-106); Potassium 3.1 mmol/L (3.5-5.1); Sodium 143 mmol/L (136-145)
[2024-06-05 07:38] LABS: Bilirubin, Total 0.7 mg/dL (0.2-1.0); Total Protein 6.6 g/dL (5.7-8.2)
[2024-06-05] MEDS: POTASSIUM EFFERVESENT TAB 25 MEQ PO ONE (12:05)
[2024-06-06] MEDS ORDERED: LISI-275 PO (13:34)
== END 2024-06-05 15:07 | disposition home or self-care (01) | DRG 305 ==
LOC: ER 15:54 → TELE 20:22 → TELE-WESTW 23:52
PROVIDERS: ADMIT Nurse Practitioner Family; ATTEND Nurse Practitioner Acute Care
DX: I16.9 Hypertensive crisis, unspecified (principal); E78.5 Hyperlipidemia, unspecified; I25.10 Atherosclerotic heart disease of native coronary artery without angina pectoris; Z90.710 Acquired absence of both cervix and uterus; Z88.5 Allergy status to narcotic agent; Z79.899 Other long term (current) drug therapy; Z88.2 Allergy status to sulfonamides
CPT/HCPCS: 36415; 70450; 71045; 80053; 81001; 84484; 85007; 85025; 85027; 93005; G0378

== ENCOUNTER 2024-06-10 15:43 | Emergency (ER) | payer OTHER ==
[~2024-06-10] VITALS: Ht 162.6 cm; Wt 65.3 kg
[~2024-06-10 15:43] MED LIST changes: -ACET1CAP14 PO; -AML5T PO; -ATOR10TA PO; -AZITTAB PO; -DOXA2TAB84 PO; +LISI-275 PO; -METH4PAK PO; +NIFE1TAB31 PO; -OLME40TA78 PO; -OLME40TA9 PO; -PANT40TA2 PO; -PRED20TA2 PO
[2024-06-10 16:23] LABS: Basophils # (auto) 0 10 ^3/uL (0-0.2); Basophils % (auto) 0.5 % (0.0-2.0); Eosinophils # (auto) 0 10 ^3/uL (0-0.8); Eosinophils % (auto) 0.4 % (0.0-7.0); Hematocrit 45.1 % (36.0-46.0); Hemoglobin 15.6 g/dL (12.2-16.2); Lymphocytes # (auto) 1.6 10 ^3/uL (0.4-5.4); Lymphocytes % (auto) 28.7 % (10.0-50.0); Mean Corpuscular Hemoglobin 31.2 pg (28.0-32.0); Mean Corpuscular Hgb Conc. 34.6 g/dL (32.0-36.0); Mean Corpuscular Volume 90.2 fL (80.0-100.0); Monocytes # (auto) 0.3 10 ^3/uL (0-1.3); Monocytes % (auto) 5.8 % (0.0-12.0); Neutrophils # (auto) 3.6 10 ^3/uL (1.6-8.6); Neutrophils % (auto) 64.6 % (37.0-80.0); Nucleated Red Blood Cells % 0.3 %; Platelet Count (auto) 155 10^3/uL (140-450); Red Cell Distribution Width 13.6 % (11.8-14.3); White Blood Cell 5.6 10^3/uL (4.4-10.8)
[2024-06-10 16:30] VITALS: PULSE 72; RESP 18; O2SAT 97
[2024-06-10 16:31] VITALS: TEMP 97.7
[2024-06-10] MEDS: NITROGLYCERIN 0.4 MG SL TAB SL ONE (16:35)
[2024-06-10 16:36] LABS: Alanine Aminotransferase 18 U/L (7-40); Albumin 4.7 g/dL (3.2-4.8); Alkaline Phosphatase 88 U/L (46-116); Anion Gap 8 (5-15); Aspartate Aminotransferase 17 U/L (13-40); BUN/Creatinine Ratio 13.6 (10.0-20.0); Blood Urea Nitrogen 12 mg/dL (9-23); Calcium 10.6 mg/dL (8.7-10.4); Carbon Dioxide 28 mmol/L (20-31); Chloride 105 mmol/L (98-107); Glucose 128 mg/dL (74-106); Potassium 4.1 mmol/L (3.5-5.1); Sodium 141 mmol/L (136-145)
[2024-06-10 16:37] LABS: Bilirubin, Total 0.6 mg/dL (0.2-1.0); Total Protein 8.2 g/dL (5.7-8.2)
[2024-06-10 17:50] LABS: Urine Bacteria None Seen /hpf (None Seen)
[2024-06-10 18:12] LABS: Urine Blood Negative /uL (Negative); Urine Clarity Clear (Clear); Urine Color Colorless (Yellow); Urine Protein, UAD TRACE (Negative); Urine Specific Gravity 1.005 (1.001-1.035); Urine Urobilinogen Normal (Negative); Urine WBC 1 /hpf (0 - 5); Urine pH 6.5 (5.0-9.0)
[2024-06-10 18:31] VITALS: BP 150/73; PULSE 60; RESP 18; O2SAT 97
== END 2024-06-10 19:01 | disposition home or self-care (01) ==
LOC: ER 15:43
DX: I10 Essential (primary) hypertension (principal); R51.9 Headache, unspecified; Z90.710 Acquired absence of both cervix and uterus; Z79.899 Other long term (current) drug therapy; Z88.2 Allergy status to sulfonamides; Z88.5 Allergy status to narcotic agent
CPT/HCPCS: 36415; 70450; 71045; 80053; 81001; 84484; 85025; 93005

== ENCOUNTER 2024-06-11 23:12 | Inpatient (IN) | payer OTHER ==
[~2024-06-11] VITALS: Ht 162.6 cm; Wt 65.1 kg
[2024-06-12] VITALS (8 sets, daily range): BP systolic 138–190; BP diastolic 75–93; PULSE 61–79; RESP 13–19; TEMP 97.8–98.1; O2SAT 95–97
[2024-06-12] LABS: Alanine Aminotransferase 17 U/L (7-40); Albumin 4.7 g/dL (3.2-4.8); Alkaline Phosphatase 84 U/L (46-116); Anion Gap 10 (5-15); Aspartate Aminotransferase 18 U/L (13-40); Blood Urea Nitrogen 14 mg/dL (9-23); Calcium 10.1 mg/dL (8.7-10.4); Carbon Dioxide 27 mmol/L (20-31); Chloride 101 mmol/L (98-107); Glucose 107 mg/dL (74-106); Potassium 3.8 mmol/L (3.5-5.1); Sodium 138 mmol/L (136-145)
[2024-06-12 00:01] LABS: Bilirubin, Total 0.5 mg/dL (0.2-1.0); Total Protein 7.8 g/dL (5.7-8.2)
[2024-06-12 00:08] LABS: Basophils # (auto) 0 10 ^3/uL (0-0.2); Basophils % (auto) 0.5 % (0.0-2.0); Eosinophils # (auto) 0.1 10 ^3/uL (0-0.8); Eosinophils % (auto) 1.1 % (0.0-7.0); Hematocrit 41.2 % (36.0-46.0); Hemoglobin 14.1 g/dL (12.2-16.2); Lymphocytes # (auto) 2.3 10 ^3/uL (0.4-5.4); Lymphocytes % (auto) 33.7 % (10.0-50.0); Mean Corpuscular Hemoglobin 30.8 pg (28.0-32.0); Mean Corpuscular Hgb Conc. 34.1 g/dL (32.0-36.0); Mean Corpuscular Volume 90.3 fL (80.0-100.0); Monocytes # (auto) 0.5 10 ^3/uL (0-1.3); Monocytes % (auto) 8.1 % (0.0-12.0); Neutrophils # (auto) 3.8 10 ^3/uL (1.6-8.6); Neutrophils % (auto) 56.6 % (37.0-80.0); Nucleated Red Blood Cells % 0.1 %; Platelet Count (auto) 107 10^3/uL (140-450); Red Blood Cells 4.56 10^6/uL (4.0-5.20); Red Cell Distribution Width 13.5 % (11.8-14.3); White Blood Cell 6.7 10^3/uL (4.4-10.8)
[2024-06-12] MEDS: NITROGLYCERIN 0.4 MG SL TAB SL ONE (00:11)
[2024-06-12 01:20] LABS: Urine Bacteria FEW /hpf (None Seen); Urine Blood Negative /uL (Negative); Urine Clarity Clear (Clear); Urine Color Colorless (Yellow); Urine Protein, UAD Negative (Negative); Urine Specific Gravity 1.005 (1.001-1.035); Urine Urobilinogen Normal (Negative); Urine WBC 5 /hpf (0 - 5); Urine pH 5.5 (5.0-9.0)
[2024-06-12] MEDS ORDERED: ONDANSETRON HCL 4 MG/2 ML VIAL IV PRN (03:15)
[2024-06-12] MEDS ORDERED: ACETAMINOPHEN 325 MG TAB PO PRN (03:15)
[2024-06-12] MEDS: hydrALAZINE HCL 20 MG/ML VL IV ONE (09:00)
[2024-06-12 09:23] LABS: Chloride 105 mmol/L (98-107); Potassium 3.6 mmol/L (3.5-5.1); Sodium 140 mmol/L (136-145)
[2024-06-12 09:24] LABS: Anion Gap 12 (5-15); Carbon Dioxide 23 mmol/L (20-31)
[2024-06-12 09:29] LABS: BUN/Creatinine Ratio 14.5 (10.0-20.0); Blood Urea Nitrogen 16 mg/dL (9-23); Glucose 115 mg/dL (74-106)
[2024-06-12] MEDS: LISINOPRIL 5 MG TAB PO SCH (09:51)
[2024-06-12] MEDS: NIFEdipine ER 30 MG TAB PO SCH ×2 (09:51→12:45)
[2024-06-12] MEDS: ENOXAPARIN SOD 40 MG/0.4 ML SYRINGE SC SCH (09:52)
[2024-06-12 10:51] LABS: Basophils # (auto) 0 10 ^3/uL (0-0.2); Basophils % (auto) 0.4 % (0.0-2.0); Eosinophils # (auto) 0 10 ^3/uL (0-0.8); Eosinophils % (auto) 0.8 % (0.0-7.0); Hematocrit 41.6 % (36.0-46.0); Hemoglobin 13.8 g/dL (12.2-16.2); Lymphocytes # (auto) 1.5 10 ^3/uL (0.4-5.4); Lymphocytes % (auto) 27.8 % (10.0-50.0); Mean Corpuscular Hemoglobin 29.8 pg (28.0-32.0); Mean Corpuscular Hgb Conc. 33.1 g/dL (32.0-36.0); Mean Corpuscular Volume 89.8 fL (80.0-100.0); Monocytes # (auto) 0.5 10 ^3/uL (0-1.3); Monocytes % (auto) 9.2 % (0.0-12.0); Neutrophils # (auto) 3.2 10 ^3/uL (1.6-8.6); Neutrophils % (auto) 61.8 % (37.0-80.0); Platelet Count (auto) 152 10^3/uL (140-450); Red Blood Cells 4.63 10^6/uL (4.0-5.20); Red Cell Distribution Width 13.5 % (11.8-14.3); White Blood Cell 5.2 10^3/uL (4.4-10.8)
[2024-06-12] MEDS: LISINOPRIL 20 MG TAB PO SCH (12:45)
[2024-06-12] MEDS: POTASSIUM EFFERVESENT TAB 25 MEQ PO ONE (13:12)
[2024-06-12] MEDS: LABETALOL HCL 20 MG/4 ML VL IV ONE (18:15)
[2024-06-12] MEDS: cefTRIAXone 1GM/50ML D5W 50 ML IV SCH (19:30)
[2024-06-12] MEDS: cloNIDine HCL 0.1 MG TAB PO SCH (21:52)
[2024-06-13] VITALS (7 sets, daily range): BP systolic 135–156; BP diastolic 65–76; PULSE 55–77; RESP 14–18; TEMP 37.2; O2SAT 91–98
[2024-06-13 06:15] LABS: Anion Gap 8 (5-15); Carbon Dioxide 29 mmol/L (20-31); Chloride 107 mmol/L (98-107); Potassium 3.8 mmol/L (3.5-5.1); Sodium 144 mmol/L (136-145)
[2024-06-13 06:16] LABS: Calcium 9.4 mg/dL (8.7-10.4)
[2024-06-13 06:21] LABS: BUN/Creatinine Ratio 19.3 (10.0-20.0); Blood Urea Nitrogen 16 mg/dL (9-23); Glucose 94 mg/dL (74-106)
[2024-06-13] MEDS ORDERED: CEPH500C PO (08:05)
[2024-06-13] MEDS ORDERED: LISI40TA16 PO (08:05)
[2024-06-13] MEDS ORDERED: CLON0.1T PO (08:05)
[2024-06-13] MEDS ORDERED: NIFE1TAB30 PO (08:05)
== END 2024-06-13 15:00 | disposition home or self-care (01) | DRG 305 ==
LOC: ER 23:12 → OVERFLOW 06-12 03:07 → EAST 06-12 14:44
PROVIDERS: ADMIT Internal Medicine; ATTEND Internal Medicine
DX: I16.0 Hypertensive urgency (principal); N17.9 Acute kidney failure, unspecified; N39.0 Urinary tract infection, site not specified; I25.10 Atherosclerotic heart disease of native coronary artery without angina pectoris; E78.5 Hyperlipidemia, unspecified; E87.6 Hypokalemia; E66.3 Overweight; I08.1 Rheumatic disorders of both mitral and tricuspid valves; Z90.710 Acquired absence of both cervix and uterus; Z88.5 Allergy status to narcotic agent; Z98.61 Coronary angioplasty status; Z68.26 Body mass index [BMI] 26.0-26.9, adult
CPT/HCPCS: 36415; 70450; 71045; 80048; 80053; 81001; 83835; 84443; 84484; 85025; 93005; 93975; 99291; G0378

== ENCOUNTER → 2024-07-14 | Outpatient (CLI) | payer OTHER ==
[~2024-07-14] MED LIST changes: +CEPH500C PO; +CLON0.1T PO; +LISI40TA16 PO; +NIFE1TAB30 PO
--- NOTE | 2024-07-14 16:18 | DVHSR ---
APPROVED REPORT EXAM: Two-dimensional and M-mode echocardiogram with Doppler and color Doppler. DIMENSIONS LVDd4.3 (3.8-5.7cm)LA (2D)3.8 (1.9-4.0cm)Aortic Root3.1 (2.0-3.7cm) LVDs3.2 (2.5-4.0cm)LA (MM) (1.9-4.0cm)Aortic Cusp Exc1.5 (1.5-2.0cm) EF (%) 50.3 (55-70%)Rt. Atrium2.9 (1.9-4.0cm)Asc. Aorta4.0 cm IVSd1.1 (0.7-1.1cm)RV (D)2.9 (1.8-2.4cm) PWd1.0 (0.7-1.1cm) Mitral Valve MitralMitral Stenosis E wave0.52m/sMV Mean GR.mmHg A wave0.97m/sMV Peak GR.45mmHg E/A ratio0.52D MVAcm2 DECEL [id number] 1/2 Timems Aortic Valve Aortic ValveAortic Stenosis V11.22m/Apollo Mean GR.4mmHg V21.63m/Apollo Peak GR.11mmHg Pulmonic Valve V21.11m/s Tricuspid Valve TR Velocity2.41m/s [id number] LEFT VENTRICLE The Ejection Fraction is 50-55%. ATRIA The left atrial size is normal. The right atrium size is normal. MITRAL VALVE Mitral annular calcification is mild. Mitral regurgitation is mild. PULMONIC VALVE The pulmonic valve is not well visualized. There is mild pulmonic valvular regurgitation. TRICUSPID VALVE The tricuspid valve is grossly normal. There is trace to mild tricuspid regurgitation. AORTIC VALVE The aortic valve is mildlysclerotic. There is trace aortic regurgitation. GREAT VESSELS The aortic root is normal size. PERICARDIAL EFFUSION There is no pericardial effusion. Conclusion EF 50% MILD TR, MR, PI
== END | disposition home or self-care (01) ==
LOC: Rad HDHVI 14:54
PROVIDERS: ATTEND Internal Medicine Cardiovascular Disease
DX: I08.8 Other rheumatic multiple valve diseases (principal); I11.0 Hypertensive heart disease with heart failure; I50.33 Acute on chronic diastolic (congestive) heart failure
CPT/HCPCS: 93306

== ENCOUNTER → 2024-07-22 | Outpatient (CLI) | payer OTHER ==
[~2024-07-22] VITALS: Ht 162.6 cm; Wt 64.9 kg
== END | disposition home or self-care (01) ==
LOC: Rad HDHVI 08:44
PROVIDERS: ATTEND Internal Medicine Cardiovascular Disease
DX: I49.3 Ventricular premature depolarization (principal); I49.1 Atrial premature depolarization; I13.0 Hypertensive heart and chronic kidney disease with heart failure and stage 1 through stage 4 chronic kidney disease, or unspecified chronic kidney disease; I50.33 Acute on chronic diastolic (congestive) heart failure; N18.2 Chronic kidney disease, stage 2 (mild); I34.0 Nonrheumatic mitral (valve) insufficiency; I42.0 Dilated cardiomyopathy; E78.00 Pure hypercholesterolemia, unspecified; I25.10 Atherosclerotic heart disease of native coronary artery without angina pectoris
CPT/HCPCS: 78452; 93017; 96374; A9500

== ENCOUNTER → 2024-08-19 | Outpatient (CLI) | payer OTHER ==
[2024-08-19 12:37] LABS: Urine Bacteria None Seen /hpf (None Seen)
[2024-08-19 12:52] LABS: Basophils # (auto) 0 10 ^3/uL (0-0.2); Basophils % (auto) 0.5 % (0.0-2.0); Eosinophils # (auto) 0.1 10 ^3/uL (0-0.8); Eosinophils % (auto) 1.4 % (0.0-7.0); Hematocrit 40.3 % (36.0-46.0); Hemoglobin 13.5 g/dL (12.2-16.2); Lymphocytes # (auto) 1.7 10 ^3/uL (0.4-5.4); Lymphocytes % (auto) 31.3 % (10.0-50.0); Mean Corpuscular Hemoglobin 30.7 pg (28.0-32.0); Mean Corpuscular Hgb Conc. 33.6 g/dL (32.0-36.0); Mean Corpuscular Volume 91.2 fL (80.0-100.0); Monocytes # (auto) 0.5 10 ^3/uL (0-1.3); Monocytes % (auto) 8.9 % (0.0-12.0); Neutrophils # (auto) 3.1 10 ^3/uL (1.6-8.6); Neutrophils % (auto) 57.9 % (37.0-80.0); Nucleated Red Blood Cells % 0.1 %; Platelet Count (auto) 158 10^3/uL (140-450); Red Blood Cells 4.42 10^6/uL (4.0-5.20); Red Cell Distribution Width 13.7 % (11.8-14.3); White Blood Cell 5.3 10^3/uL (4.4-10.8)
[2024-08-19 13:08] LABS: Urine Blood Negative /uL (Negative); Urine Clarity Clear (Clear); Urine Color Light-Yellow (Yellow); Urine Protein, UAD TRACE (Negative); Urine Squamous Epithelial Cell FEW /hpf (<5); Urine Urobilinogen Normal (Negative); Urine WBC <1 /hpf (0 - 5)
[2024-08-19 13:16] LABS: Alanine Aminotransferase 14 U/L (7-40); Albumin 4.2 g/dL (3.2-4.8); Alkaline Phosphatase 84 U/L (46-116); Anion Gap 7 (5-15); Aspartate Aminotransferase 19 U/L (13-40); BUN/Creatinine Ratio 15.7 (10.0-20.0); Blood Urea Nitrogen 16 mg/dL (9-23); Carbon Dioxide 30 mmol/L (20-31); Chloride 104 mmol/L (98-107); HDL Cholesterol 56 mg/dL (40-59); Potassium 4.1 mmol/L (3.5-5.1); Sodium 141 mmol/L (136-145); Triglycerides 102 mg/dL (< 150)
[2024-08-19 13:17] LABS: Bilirubin, Total 0.7 mg/dL (0.2-1.0); Total Protein 7.2 g/dL (5.7-8.2)
[2024-08-19 13:19] LABS: Cholesterol 229 mg/dL (< 200); Glucose 116 mg/dL (74-106); LDL Cholesterol 173 mg/dL (< 100)
== END | disposition home or self-care (01) ==
LOC: LAB 12:25
PROVIDERS: ATTEND Nurse Practitioner
DX: I10 Essential (primary) hypertension (principal); E78.5 Hyperlipidemia, unspecified; R73.9 Hyperglycemia, unspecified
CPT/HCPCS: 36415; 80053; 80061; 81001; 83036; 84443; 85025

== ENCOUNTER 2025-01-26 12:07 | Outpatient (CLI) | payer OTHER ==
[2025-01-26 12:39] LABS: Urine Bacteria None Seen /hpf (None Seen)
[2025-01-26 12:55] LABS: Basophils # (auto) 0 10 ^3/uL (0-0.2); Basophils % (auto) 0.6 % (0.0-2.0); Eosinophils # (auto) 0 10 ^3/uL (0-0.8); Eosinophils % (auto) 0.9 % (0.0-7.0); Hematocrit 41.8 % (36.0-46.0); Hemoglobin 14.1 g/dL (12.2-16.2); Lymphocytes # (auto) 1.4 10 ^3/uL (0.4-5.4); Lymphocytes % (auto) 28.7 % (10.0-50.0); Mean Corpuscular Hemoglobin 29.9 pg (28.0-32.0); Mean Corpuscular Hgb Conc. 33.7 g/dL (32.0-36.0); Mean Corpuscular Volume 88.9 fL (80.0-100.0); Monocytes # (auto) 0.4 10 ^3/uL (0-1.3); Monocytes % (auto) 8.3 % (0.0-12.0); Neutrophils # (auto) 2.9 10 ^3/uL (1.6-8.6); Neutrophils % (auto) 61.5 % (37.0-80.0); Nucleated Red Blood Cells % 0.1 %; Platelet Count (auto) 149 10^3/uL (140-450); Red Blood Cells 4.71 10^6/uL (4.0-5.20); Red Cell Distribution Width 13.6 % (11.8-14.3); White Blood Cell 4.8 10^3/uL (4.4-10.8)
[2025-01-26 13:24] LABS: Urine Blood Negative /uL (Negative); Urine Budding Yeast OCCASIONAL /hpf (None Seen); Urine Clarity Clear (Clear); Urine Color Light-Yellow (Yellow); Urine Protein, UAD Negative (Negative); Urine Specific Gravity 1.005 (1.001-1.035); Urine Squamous Epithelial Cell None Seen /hpf (<5); Urine Urobilinogen Normal (Negative); Urine pH 6.5 (5.0-9.0)
[2025-01-26 13:25] LABS: Alanine Aminotransferase 17 U/L (7-40); Alkaline Phosphatase 76 U/L (46-116); Anion Gap 10 (5-15); Aspartate Aminotransferase 21 U/L (<34); BUN/Creatinine Ratio 18.1 (10.0-20.0); Blood Urea Nitrogen 17 mg/dL (9-23); Calcium 9.4 mg/dL (8.7-10.4); Carbon Dioxide 27 mmol/L (20-31); Chloride 103 mmol/L (98-107); Potassium 3.6 mmol/L (3.5-5.1); Sodium 140 mmol/L (136-145); Total Protein 7.3 g/dL (5.7-8.2); Uric Acid 6.3 mg/dL (3.1-7.8)
[2025-01-26 13:26] LABS: Albumin 4.5 g/dL (3.2-4.8); Bilirubin, Total 0.8 mg/dL (0.2-1.0); Glucose 112 mg/dL (74-106); Urine WBC < 1 /HPF (0-5)
[2025-01-26 13:40] LABS: Triglycerides 102 mg/dL (< 150)
[2025-01-26 13:42] LABS: HDL Cholesterol 54 mg/dL (40-59)
[2025-01-26 13:43] LABS: Cholesterol 239 mg/dL (< 200); LDL Cholesterol 181 mg/dL (< 100)
== END 2025-01-26 17:00 | disposition home or self-care (01) ==
LOC: LAB 12:07
PROVIDERS: ATTEND Family Medicine
DX: I10 Essential (primary) hypertension (principal); M40.209 Unspecified kyphosis, site unspecified; Z12.11 Encounter for screening for malignant neoplasm of colon; Z00.01 Encounter for general adult medical examination with abnormal findings; Z79.899 Other long term (current) drug therapy
CPT/HCPCS: 36415; 80053; 80061; 81001; 82270; 82306; 83036; 84443; 84550; 85025

== ENCOUNTER 2025-06-02 10:02 | Outpatient (CLI) | payer OTHER ==
[2025-06-02 11:30] LABS: Triglycerides 107 mg/dL (< 150)
[2025-06-02 11:32] LABS: Cholesterol 210 mg/dL (< 200); HDL Cholesterol 52 mg/dL (40-59)
== END 2025-06-02 17:00 | disposition home or self-care (01) ==
LOC: LAB 10:02
PROVIDERS: ATTEND Family Medicine
DX: E78.5 Hyperlipidemia, unspecified (principal); N18.31 Chronic kidney disease, stage 3a; R73.09 Other abnormal glucose; R73.01 Impaired fasting glucose
CPT/HCPCS: 36415; 80061; 82947; 83036